=== PATIENT | male | born 1985 | race Hispanic/Latino ===

== ENCOUNTER 2017-09-26 06:50 | Emergency (ER) | payer SELFPAY ==
[2017-09-26] MEDS ORDERED: Sodium Chloride 0.9% 1,000 ML IV ONE ×2 (07:15→09:38)
[2017-09-26] MEDS ORDERED: Sodium Chloride 0.9% 1,000 ML ONE ×2 (07:20→09:42)
[2017-09-26 07:40] LABS: LYMPH % 6.5 % (20.0-40.0); MEAN PLATELET VOLUME 8.5 fL (7.2-11.7); MONO # 0.4 K/uL (0.0-0.8)
[2017-09-26 07:45] LABS: BASO % 0.2 % (0.0-2.0); EOS % 0.1 % (0.0-4.0); HEMATOCRIT 48.4 % (35.0-51.0); MEAN CELL VOLUME 95.4 fL (80.0-94.0); MEAN CORPUSCULAR HEMOGLOBIN 33.5 pg (27.0-31.0); MEAN CORPUSCULAR HGB CONC 35.1 g/dL (33.0-37.0); MONO % 2.8 % (0.0-10.0); NRBC % 0.1 % (0.0-2.0); PLATELET COUNT 289 K/uL (130-400); RED CELL DISTRIBUTION WIDTH 12.9 % (11.5-14.5)
[2017-09-26 07:52] LABS: ALKALINE PHOSPHATASE 88 U/L (38-126); ALT/SGPT 40 U/L (21-72); AST/SGOT 28 U/L (17-59); BILIRUBIN,TOTAL 1.5 mg/dL (0.2-1.3); BLOOD UREA NITROGEN 21 mg/dL (9-20); CALCIUM 9.7 mg/dl (8.6-10.4); CARBON DIOXIDE 19 mmol/L (22-30); CHLORIDE 102 mmol/L (98-107); GFR AFRICAN-AMERICAN > 60; GLUCOSE,RANDOM 132 mg/dL (75-110); POTASSIUM 3.7 mmol/L (3.6-5.2); SODIUM 140 mmol/L (132-148); TOTAL PROTEIN 9.5 g/dL (6.3-8.3)
[2017-09-26 07:57] LABS: ALB/GLOB RATIO 1.2 (1.0-2.1)
--- NOTE | 2017-09-26 08:25 | C.PDOC ---
History Of Present Illness 32-year-old male presents to the emergency department with complaints of generalized weakness. Patient notes multiple episodes of nausea, with non- bloody/non-bilious vomiting, and watery/non-bloody diarrhea, after stopping Heroin (snorts, no IVDA). He denies chest pain or shortness of breath, states he just feels dehydrated. Patient states he does not want detox. Time Seen by Provider: 09/26/17 07:06 Chief Complaint (Nursing): Substance Abuse History Per: Patient History/Exam Limitations: no limitations Onset/Duration Of Symptoms: Hrs Current Symptoms Are (Timing): Still Present Modifying Factor(s): Narcotics Severity: Moderate Past Medical History Reviewed: Historical Data, Nursing Documentation, Vital Signs Vital Signs: Last Vital Signs Temp 98.5 F 09/26/17 10:42 Pulse 75 09/26/17 10:42 Resp 18 09/26/17 10:42 BP 127/62 09/26/17 10:42 Pulse Ox 99 09/26/17 10:42 - Medical History PMH: No Chronic Diseases Family History: States: No Known Family Hx - Social History Hx Alcohol Use: No Hx Substance Use: Yes Review Of Systems Except As Marked, All Systems Reviewed And Found Negative. Constitutional: Positive for: Weakness. Negative for: Fever, Chills Cardiovascular: Negative for: Chest Pain, Palpitations Respiratory: Negative for: Cough, Shortness of Breath Gastrointestinal: Positive for: Nausea, Vomiting, Diarrhea. Negative for: Abdominal Pain Genitourinary: Negative for: Incontinence Musculoskeletal: Negative for: Back Pain Neurological: Negative for: Weakness, Numbness, Headache, Dizziness Physical Exam - Physical Exam Appears: Well, Non-toxic, In Acute Distress (uncomfortable) Skin: Warm, Dry, No Rash Head: Normacephalic Eye(s): bilateral: Normal Inspection Oral Mucosa: Moist Neck: Normal, Normal ROM Cardiovascular: Rhythm Regular Respiratory: Normal Breath Sounds, No Rales, No Rhonchi, No Wheezing Gastrointestinal/Abdominal: Bowel Sounds, Soft, Tenderness (mild epigastric), No Distention, No Guarding, No Rebound Extremity: Normal ROM Neurological/Psych: Oriented x3 ED Course And Treatment - Laboratory Results Result Diagrams: 09/26/17 07:31 09/26/17 07:31 O2 Sat by Pulse Oximetry: 98 (on RA) Pulse Ox Interpretation: Normal Progress Note: Blood work ordered and reviewed. Patient given IV NS bolus x 2, IV Protonix, IV Zofran. Reevaluation Time: 10:45 Reassessment Condition: Improved (Patient reassessed, is resting comfortably and states he feels better. On exam, abdomen is soft and nontender. Patient given Rx for zofran, and was instructed to follow up with PMD/clinic in 1-2 days. He understands he should return to ED if symptoms worsen.) Disposition Counseled Patient/Family Regarding: Studies Performed, Diagnosis, Need For Followup, Rx Given - Disposition Referrals: [facility] [Outside] Disposition: HOME/ ROUTINE Disposition Time: 10:45 Condition: STABLE Additional Instructions: DRINK PLENTY OF CLEAR FLUIDS USE MEDICATION NEEDED ADVANCE TO BLAND DIET SLOWLY RETURN TO ER IF SYMPTOMS WORSEN Prescriptions: Ondansetron [Zofran Odt] 4 mg PO Q8 PRN #15 odt PRN Reason: Nausea/Vomiting Instructions: Dehydration (ED), Acute Nausea and Vomiting (ED) Forms: [employer] (Lao) Print Language: MONEGASQUE - Clinical Impression Clinical Impression: Nausea & vomiting, Opiate withdrawal, Dehydration - Scribe Statement The provider has reviewed the documentation as recorded by the Scribe (Augie Hernandez) All medical record entries made by the Scribe were at my direction and personally dictated by me. I have reviewed the chart and agree that the record accurately reflects my personal performance of the history, physical exam, medical decision making, and the department course for this patient. I have also personally directed, reviewed, and agree with the discharge instructions and disposition.
[2017-09-26 08:46] LABS: NEUTROPHIL 91 % (50-75); TOTAL CELLS COUNTED 100
[2017-09-26 10:05] VITALS: RESP 18
[2017-09-26 10:43] VITALS: BP 127/62; PULSE 75; TEMP 98.5
[2017-09-29 14:38] VITALS: O2SAT 98
== END 2017-09-26 10:55 | disposition home or self-care (01) ==
LOC: C.ER 06:50
DX: F11.23 Opioid dependence with withdrawal (principal); E86.0 Dehydration; R11.2 Nausea with vomiting, unspecified
CPT/HCPCS: 80053; 85025; 96374; 96375; 99283; C9113; J2405; J7040